=== PATIENT | female | born 1960 | race Caucasian/White ===

== ENCOUNTER → 2021-04-30 11:01 | Outpatient (BNVA) | payer OTHER, SELFPAY | PROVIDERS: Family Provider Family Medicine; Visit Provider Nurse Practitioner Family | DX: Z20.822 Contact with and (suspected) exposure to COVID-19 (principal) | CPT/HCPCS: 87635 ==

== ENCOUNTER 2021-06-29 06:00 | Outpatient (RCR) | payer OTHER, SELFPAY | END 2021-07-29 23:59 | disposition home or self-care (01) | LOC: SPT 06:00 | PROVIDERS: PCP Family Medicine; Referring Provider Family Medicine; Visit Provider Family Medicine | DX: M17.0 Bilateral primary osteoarthritis of knee (principal) | CPT/HCPCS: 97161 ==

== ENCOUNTER 2021-07-30 06:00 | Outpatient (RCR) | payer OTHER, SELFPAY | END 2021-08-28 23:59 | disposition home or self-care (01) | LOC: SPT 06:00 | PROVIDERS: PCP Family Medicine; Referring Provider Family Medicine; Visit Provider Family Medicine | DX: M17.0 Bilateral primary osteoarthritis of knee (principal) | CPT/HCPCS: 97110 ==

== ENCOUNTER 2021-08-01 14:48 | Outpatient (CLI) | payer OTHER, SELFPAY ==
--- NOTE | 2021-08-01 14:56 | MM_ITS ---
WS: [id number] BILATERAL DIGITAL SCREENING MAMMOGRAPHY WITH CAD CLINICAL INFORMATION: SCREENING HISTORY: Screening mammogram. No current complaints. COMPARISON: June 03, 2018 TECHNIQUE: Bilateral CC and MLO views. FINDINGS: Scattered fibroglandular densities bilaterally. No suspicious focal mass, asymmetry, calcifications, or architectural distortion. No evidence of malignancy. MM/[place] [id number] IMPRESSION: BI-RADS: 1-Negative FOLLOW UP: 1 Year Follow-up Recommend return to annual screening mammography.
== END 2021-08-01 14:49 | disposition home or self-care (01) ==
LOC: RADSHAW 14:49
PROVIDERS: PCP Family Medicine; Visit Provider Family Medicine
DX: Z12.31 Encounter for screening mammogram for malignant neoplasm of breast (principal)
CPT/HCPCS: 77067

== ENCOUNTER → 2021-09-24 00:01 | Outpatient (BNVA) | payer OTHER, SELFPAY | PROVIDERS: PCP Family Medicine; Visit Provider Nurse Practitioner Family | DX: Z20.822 Contact with and (suspected) exposure to COVID-19 (principal); J06.9 Acute upper respiratory infection, unspecified; R43.0 Anosmia | CPT/HCPCS: 87635 ==

== ENCOUNTER → 2021-10-11 10:04 | Outpatient (BNVA) | payer OTHER, SELFPAY | PROVIDERS: PCP Family Medicine; Visit Provider Nurse Practitioner Family | DX: Z20.822 Contact with and (suspected) exposure to COVID-19 (principal) | CPT/HCPCS: 87635 ==

== ENCOUNTER 2021-12-03 06:00 | Outpatient (RCR) | payer OTHER, SELFPAY | END 2021-12-27 23:59 | disposition home or self-care (01) | LOC: SPT 06:00 | PROVIDERS: PCP Family Medicine; Referring Provider Orthopaedic Surgery; Visit Provider Orthopaedic Surgery | DX: Z47.1 Aftercare following joint replacement surgery (principal); Z96.651 Presence of right artificial knee joint | CPT/HCPCS: 97110; 97161 ==

== ENCOUNTER 2021-12-28 06:00 | Outpatient (RCR) | payer OTHER, SELFPAY | END 2022-01-26 23:59 | disposition home or self-care (01) | LOC: SPT 06:00 | PROVIDERS: PCP Family Medicine; Referring Provider Orthopaedic Surgery; Visit Provider Orthopaedic Surgery | DX: Z47.1 Aftercare following joint replacement surgery (principal); Z96.651 Presence of right artificial knee joint; M17.11 Unilateral primary osteoarthritis, right knee | CPT/HCPCS: 97110 ==

== ENCOUNTER → 2022-07-16 14:10 | Outpatient (BNVA) | payer OTHER, SELFPAY | PROVIDERS: PCP Family Medicine; Visit Provider Family Medicine | DX: R05.9 Cough, unspecified (principal); J06.9 Acute upper respiratory infection, unspecified | CPT/HCPCS: 87400; 87426 ==

== ENCOUNTER → 2022-08-29 15:54 | Outpatient (BNVA) | payer OTHER, SELFPAY | PROVIDERS: PCP Family Medicine; Visit Provider Family Medicine | DX: J06.9 Acute upper respiratory infection, unspecified (principal) | CPT/HCPCS: 87400 ==

== ENCOUNTER 2022-09-27 08:52 | Outpatient (CLI) | payer OTHER, SELFPAY ==
--- NOTE | 2022-09-27 09:00 | MM_ITS ---
WS: [id number] Bilateral screening 3D tomosynthesis digital mammogram, 09/27/2022 Clinical Data: SCREENING Comparison: 03/31/2021, 06/03/2018, 05/23/2017, 04/28/2015, 05/28/2013, 11/22/2011, 01/27/2007. Findings: The breast parenchymal pattern shows fibroglandular tissue. There is prominent tissue in the upper ou ter quadrant of both breasts unchanged. No spiculated masses or clustered calcifications are seen. Th ere are no secondary signs of carcinoma. There are monitor leads on the right breast. MM/[place] [id number] Impression: 1. Negative bilateral mammogram unchanged. 2. Recommend annual screening mammograms. BIRADS: 1-Negative FOLLOW UP: 1 Year Follow-up The CAD bingo checker was used.
== END 2022-09-27 08:53 | disposition home or self-care (01) ==
PROVIDERS: PCP Family Medicine; Visit Provider Family Medicine
DX: Z12.31 Encounter for screening mammogram for malignant neoplasm of breast (principal)
CPT/HCPCS: 77063; 77067

== ENCOUNTER → 2023-05-08 08:53 | Outpatient (BNVA) | payer OTHER, SELFPAY | PROVIDERS: PCP Family Medicine; Visit Provider Family Medicine | DX: R00.2 Palpitations (principal); R40.0 Somnolence | CPT/HCPCS: 80053; 80061; 84443; 85025 ==

== ENCOUNTER 2023-10-03 07:49 | Outpatient (CLI) | payer OTHER, SELFPAY ==
--- NOTE | 2023-10-03 07:51 | MM_ITS ---
WS: [id number] BILATERAL SCREENING DIGITAL TOMOSYNTHESIS MAMMOGRAM WITH CAD HISTORY: SCREENING COMPARISON: 09/27/2022, 08/01/2021 and 04/28/2015 Bilateral CC and MLO views with tomosynthesis and synthetic mammography submitted. Computer aided det ection analyzed. Breast composition: There are scattered areas of fibroglandular density. No suspicious masses, microc alcifications or architectural distortion. Asymmetric fibroglandular tissue in the upper outer quadra nt of each breast. Very similar to prior studies. IMPRESSION: MM/[place] [id number] BI-RADS: 2-Benign FOLLOW UP: 1 Year Follow-up
== END 2023-10-03 07:50 | disposition home or self-care (01) ==
LOC: RAD 07:49
PROVIDERS: PCP Family Medicine; Visit Provider Family Medicine
DX: Z12.31 Encounter for screening mammogram for malignant neoplasm of breast (principal)
CPT/HCPCS: 77063; 77067

== ENCOUNTER 2023-11-19 14:30 | Outpatient (CLI) | payer OTHER, SELFPAY | END 2023-11-19 14:31 | disposition home or self-care (01) | LOC: SLEEP 11-20 08:55 | PROVIDERS: PCP Family Medicine; Visit Provider Family Medicine | DX: R40.0 Somnolence (principal) | CPT/HCPCS: G0399 ==

== ENCOUNTER → 2024-03-02 10:33 | Outpatient (BNVA) | payer OTHER, SELFPAY | PROVIDERS: PCP Family Medicine; Visit Provider Family Medicine | DX: M19.90 Unspecified osteoarthritis, unspecified site (principal); I10 Essential (primary) hypertension | CPT/HCPCS: 80048; 84550; 85025; 86140 ==

== ENCOUNTER 2024-06-15 13:00 | Outpatient (CLI) | payer OTHER, SELFPAY ==
--- NOTE | 2024-06-15 13:00 | XR_ITS ---
WS: [id number] DEXA (DUAL ENERGY X-RAY ABSORPTIOMETRY) Bone mineral density was performed using a [email or web address] machine. HISTORY: screening COMPARISON: 09/02/2018 Left forearm BMD: 0.449. T score: -0.3 Z score: 0.9 Total hip BMD: Left: 0.850 g/cm2. T score: -1.3 Z score: -0.7 Right: 0.886 g/cm2. T score: -1.0 Z score: -0.4 10 year probability of a major osteoporotic fracture is 7.9%. Compared to the prior study from 09/02/2018. LEFT forearm bone mineral density has decreased by 5.1%. Bilateral hips bone mineral density has decreased by 7.5%. XR/XR DEXA axial skeleton* [id number] IMPRESSION: OSTEOPENIA based upon the WHO classification for females. Significant decrease in bone mineral density within the LEFT forearm and hips s kathy the prior study.
== END 2024-06-15 13:11 | disposition home or self-care (01) ==
PROVIDERS: PCP Family Medicine; Visit Provider Family Medicine
DX: Z00.00 Encounter for general adult medical examination without abnormal findings (principal); M85.88 Other specified disorders of bone density and structure, other site
CPT/HCPCS: 77080

== ENCOUNTER 2024-08-20 08:22 | Outpatient (RCR) | payer OTHER, SELFPAY | END 2024-08-28 23:59 | disposition home or self-care (01) | LOC: SPT 08:22 | PROVIDERS: Visit Provider Orthopaedic Surgery | DX: M17.12 Unilateral primary osteoarthritis, left knee (principal) | CPT/HCPCS: 97110; 97161 ==

== ENCOUNTER 2024-08-29 06:00 | Outpatient (RCR) | payer OTHER, SELFPAY | END 2024-09-28 23:59 | disposition home or self-care (01) | LOC: SPT 06:00 | PROVIDERS: Visit Provider Orthopaedic Surgery | DX: M17.12 Unilateral primary osteoarthritis, left knee (principal) | CPT/HCPCS: 97110 ==

== ENCOUNTER 2024-09-16 17:39 | Emergency (ER) | payer OTHER, SELFPAY ==
[2024-09-16] VITALS (9 sets, daily range): BP systolic 87–154; BP diastolic 66–105; PULSE 65–100; RESP 18–22; TEMP 36.5; O2SAT 92–100; BMI 28.9
--- NOTE | 2024-09-16 18:27 | XRR_ITS ---
PROCEDURE INFORMATION: Exam: XR Chest Exam date and time: 09/16/2024 6:39 PM Age: 64 years old Clinical indication: Shortness of breath and other: N/v/d; Additional info: Severe dizziness with nausea TECHNIQUE: Imaging protocol: Radiologic exam of the chest. Views: 1 view. COMPARISON: CT angio chest PE protcl [id number] 01/25/2019 7:50 AM FINDINGS: Lungs: Unremarkable. No consolidation. Pleural spaces: Unremarkable. No pleural effusion. No pneumothorax. Heart/Mediastinum: Unremarkable. No cardiomegaly. Bones/joints: Unremarkable. The spine demonstrates mild degenerative changes at multiple levels. XR/XR chest 1V portable [id number] IMPRESSION: No acute findings.
--- NOTE | 2024-09-16 18:28 | ED_ITS ---
HPI - Dizziness 2 General: Chief Complaint: Dizziness Stated Complaint: dizzy,n,v Time Seen by Provider: 09/16/24 18:10 Source: patient Mode of arrival: ambulatory Limitations: no limitations History of Present Illness: HPI Narrative: Patient is a 64-year-old female with no pertinent past medical history who is reporting to the emergency department complaining of greater than 24 hours of dizziness. She states that the dizziness is worse when she lies flat, describes it as room spinning. She states she had to cancel her PT appointment this morning due to the severity of her symptoms. She notes that she feels unstable on her feet and that she may fall, though denies any falls. She also is not having any pain anywhere, is having quite a bit of nausea and vomiting but denies any hemoptysis. She has never had this before, states her daughter had severe dizziness once and required vestibular rehab to get better. She denies starting or changing any new medications, specifically also states that she has not tried anything [id number] for her dizziness such as meclizine. She denies feeling dehydrated, and denies any symptoms of a urinary tract infection. No focal neurological deficits reported, in the room confirms that patient has not acted strange in any way to indicate any sort of a strokelike syndrome. Patient is denying any cardiac history. Specifically she is denying any chest pain or shortness of breath. At this time her blood pressure somewhat elevated, likely secondary to her symptoms and anxiety. She is breathing 99 to 100% on room air with normal pulse rate. Denies any sick contacts. MD elicited complaint: dizziness Pertinent past history: other (None) Onset (ago): day(s) Timing: sudden onset Severity: moderate Description: room spinning History of similar symptoms: No Relieving factors: nothing Associated symptoms: Reports nausea and vomiting; Denies chest pain, chills, headache(s) or palpitations Associated neuro symptoms: Deny numbness in extremities Related Data Home Medications Medication Instructions Recorded Confirmed calcium 250 mg (as 1 tab PO DAILY 04/30/21 05/27/24 carbonate)-vitamin D3 3.125 mcg (125 unit) tablet cetirizine 10 mg capsule (Zyrtec) 10 mg PO DAILY PRN 04/30/21 05/27/24 tumeric PO DAILY 04/30/21 05/27/24 antiarthritic combination no.2 900 900 mg PO DAILY 10/11/21 05/27/24 mg tablet (glucosamine-chondroitin) Previous Rx's Medication Instructions Recorded oxycodone-acetaminophen 5 mg-325 1 tab PO Q8H PRN pain 1 month #90 08/15/22 mg tablet (Percocet) tabs meloxicam 15 mg tablet See Rx Instructions .Route 01/26/23 .COMPLEX #90 tabs gabapentin 300 mg capsule 300 mg PO BID #180 caps 02/04/23 pantoprazole 40 mg tablet,delayed See Rx Instructions .Route 07/31/23 release .COMPLEX #90 tabs cyclobenzaprine 10 mg tablet 10 mg PO TID PRN muscle spasm #90 10/09/23 tabs tramadol 50 mg tablet 50 mg PO BID PRN pain #60 tabs 10/09/23 auto-titrating C-pap 6-12 #1 ea 01/06/24 levothyroxine 25 mcg tablet See Rx Instructions .Route 01/27/24 .COMPLEX #90 tabs metoprolol succinate 50 mg See Rx Instructions .Route 02/11/24 tablet,extended release 24 hr .COMPLEX #90 tabs nifedipine 30 mg tablet,extended See Rx Instructions .Route 03/03/24 release 24 hr .COMPLEX #90 tabs citalopram 40 mg tablet See Rx Instructions .Route 04/20/24 .COMPLEX #90 tabs nystatin 100,000 unit/gram topical See Rx Instructions .Route 06/09/24 powder .COMPLEX #30 grams meclizine 25 mg tablet 25 mg PO BID PRN dizziness #30 tabs 09/16/24 Allergies Allergy/AdvReac Type Severity Reaction Status Date / Time Sulfa (Sulfonamide Allergy Intermediate rash Verified 09/16/24 17:55 Antibiotics) nickel Allergy ALGY-Rash Verified 09/16/24 17:55 Review of Systems 2 General: Reports: 10 or more systems reviewed and unremarkable except in HPI and below Const: Denies: fever(s), chills or fatigue Eyes: Denies: change in vision ENMT: Denies: throat pain, ear or mastoid pain or nasal discharge Card: Denies: chest pain, palpitations, swelling of feet/ankles or lightheadedness Resp: Denies: dyspnea, productive cough or wheezing GI: Reports: nausea and vomiting; Denies: abdominal pain, diarrhea or constipation : Denies: flank pain, difficulty voiding, dysuria or urinary frequency Musc: Denies: neck pain, back pain or joint pain Skin/Breast: Denies: rash Neuro: Reports: dizziness; Denies: headache(s), numbness in extremities, weakness in extremities, sensory changes, lack of coordination, behavioral changes, Slurred speech present or seizure-like activity PFSH ED 2 PFSH: Medical History Daytime somnolence Palpitations Osteoarthritis of left knee Social History Smoking and tobacco/nicotine status: unknown if used tobacco/nicotine Alcohol intake: current Alcohol intake frequency: holidays/special occasions only Substance/Drug Use: never Physical Exam 2 Const: COMMON NORMALS: patient oriented x3 and no limitations GENERAL APPEARANCE: cooperative, well developed and anxious (Tearful) O RIENTATION/CONSCIOUSNESS: Yes awake, Yes oriented to person, Yes oriented to place and Yes oriented to time HENMT: COMMON NORMALS: normocephalic, atraumatic, hearing grossly normal bilaterally, TM's normal bilaterally and moist oral mucous membranes HEAD & SCALP: normocephalic and atraumatic TYMPANIC MEMBRANE: TM's normal bilaterally Eye: COMMON NORMALS: Equal, round and reactive pupils present, EOMs intact bilaterally and conjunctivae normal CONJUNCTIVA: Yes conjunctivae normal P UPIL: Yes Equal, round and reactive pupils present OTHER: No nystagmus Neck/C-Spine: COMMON NORMALS: full ROM, supple and no JVD Resp: COMMON NORMALS: normal respiratory effort, No retractions, No use of accessory muscles and clear to auscultation bilaterally AUSCULTATION: clear to auscultation bilaterally Cardio: COMMON NORMALS: no JVD, regular rate, regular rhythm, No clicks present (Cardio), No murmurs present (Cardio) and No rub (Cardio) RATE: r egular rate RHYTHM: regular rhythm GI: COMMON NORMALS: Normal to inspection, nondistended, normoactive bowel sounds present, Soft to palpation and non-tender AUSCULTATION: Yes normoactive bowel sounds PALPATION: Yes Soft to palpation RECTAL EXAM: d eferred Extremity: COMMON NORMALS: normal to inspection, full ROM and capillary refill normal Neuro: COMMON NORMALS: patient oriented x3, CN's II-XII intact bilaterally, moves all extremities, no focal motor deficits and no sensory deficits noted SENSORIUM/ORIENTATION: Yes oriented to person, Yes oriented to place and Yes oriented to time Skin: COMMON NORMALS: no rashes or lesions noted GENERAL SKIN EXAM: no rashes or lesions noted Course 2 Vital Signs: Vital signs: Vital Signs Temperature 97.7 F 09/16/24 17:49 Pulse Rate 71 09/16/24 21:00 Respiratory Rate 18 09/16/24 21:00 Blood Pressure 145/105 09/16/24 21:00 Pulse Oximetry 100 09/16/24 21:00 Oxygen Delivery Me thod Room Air 09/16/24 21:00 MDM - Dizziness Medical Decision Making This patient presented with greater than 24 hours of dizziness,no real history of being positionally exacerbated other than that was worse when she lied flat. This on top of her blood pressure does not make me think of any orthostatic dizziness. On physical exam her neurological status was completely intact, no focal neurological deficits. She did not have any cardiac history, with this acute onset of dizziness wanted to make sure that this was not cryptic cardiac presentation. Her EKG obtained showing normal sinus rhythm with no acute ST segment changes or arrhythmias. Chest x-ray showing no acute cardiopulmonary findings, and her baseline troponin and repeat troponin were both completely negative. She did not appear clinically dehydrated and her metabolic panel was normal. No infection on her CBC. Urinalysis did not show any signs of urinary tract infection. I gave her a dose of meclizine and upon recheck stated it had not gotten much better and for her own sake would like to make sure there is nothing intracranial. Because of this a CT head without contrast was obtained and did not show any acute findings. With lack of workup here in the emergency department, and her completely normal workup, likely this is benign paroxysmal positional vertigo. Actually after the imaging I rechecked her and she was saying that she was starting to feel little better. Discussed with her conservative therapies such as drinking plenty of fluids and taking care with transferring positions. Also will prescribe meclizine for her to take twice daily as needed, and if she continues to have worsening dizziness she may benefit from some vestibular rehab. Very low suspicion at this time for any neurological etiology, despite this we will have her return with any new or concerning symptoms that pop up. Patient agreeing with this plan and all of the questions and concerns were addressed. Vitals have remained stable throughout the ED course. Lab Data 09/16/24 18:31 09/16/24 18:31 Radiology Impressions Chest X-Ray 09/16/24 18:27 IMPRESSION: No acute findings. Head CT 09/16/24 19:38 IMPRESSION: No acute intracranial findings. Laboratory Results WBC 6.95 10^3/uL (3.29-11.43) 09/16/24 18:31 RBC 4.36 10^6/uL (3.85-5.65) 09/16/24 18:31 Hgb 12.10 g/dL (11.27-16.99) 09/16/24 18: Hct 37.6 % (36-47) 09/16/24 18:31 MCV 86.2 fl (85-98) 09/16/24 18:31 MCH 27.8 pg (27-33) 09/16/24 18: MCHC 32.2 g/dL (30-55) 09/16/24 18:31 RDW 13.7 % (12.1-15.1) 09/16/24 18:31 Plt Count 299 10^3/cmm (157-399) 09/16/24 18:31 MPV 9.3 fL (7.4-10.4) 09/16/24 18:31 Neut % (Auto) 42.6 % 09/16/24 18:31 Lymph % (Auto) 47.6 % 09/16/24 18:31 [place] % (Auto) 7.2 % 09/16/24 18:31 Eos % (Auto) 1.9 % 09/16/24 18:31 Baso % (Auto) 0.6 % 09/16/24 18:31 Neut # (Auto) 2.96 10^3/uL (1.8-7.7) 09/16/24 18: Lymph # (Auto) 3.3 10^3/uL (0.8-4.8) 09/16/24 18:31 [place] # (Auto) 0.5 10^3/uL (0.2-0.9) 09/16/24 18:31 Eos # (Auto) 0.1 10^3/uL (0.0-0.8) 09/16/24 18:31 Baso # (Auto) 0.0 10^3/uL (0.0-0.1) 09/16/24 18:31 Nucleated RBC % (auto) 0 % 09/16/24 18:31 Nucleated RBCs # 0.0 /100WBC 09/16/24 18:31 Sodium 140 mmol/L (136-145) 09/16/24 18:31 Potassium 4.3 mmol/L (3.5-5.1) 09/16/24 18:31 Chloride 105 mmol/L (98-107) 09/16/24 18:31 Carbon Dioxide 23 mmol/L (22-29) 09/16/24 18:31 Anion Gap 16.3 (5-19) 09/16/24 18:31 BUN 12 mg/dL (8-23) 09/16/24 18:31 Creatinine 0.4 mg/dL (0.5-0.9) L 09/16/24 18:31 GFR Calculation 161.2 mL/min (90-130) H 09/16/24 18:31 Glucose 91 mg/dL (65-115) 09/16/24 18:31 Calculated Osmolality 289 mOsm/kg (285-295) 09/16/24 18:31 Calcium 9.7 mg/dL (8.5-10.5) 09/16/24 18:31 Total Bilirubin 0.3 mg/dL (0.15-1.2) 09/16/24 18:31 AST 20 U/L (0-32) 09/16/24 18:31 ALT 12 U/L (0-33) 09/16/24 18:31 Alkaline Phosphatase 124 U/L (35-105) H 09/16/24 18:31 Troponin T Baseline < 6 ng/L (0-10) 09/16/24 18:31 Troponin T 120 Minute 6.00 ng/L (0-10) 09/16/24 20:36 Delta Troponin T 0.82349 ABS# (0-10) 09/16/24 20:36 Total Protein 7.1 g/dL (6.6-8.7) 09/16/24 18:31 Albumin 4.3 g/dL (3.5-5.2) 09/16/24 18:31 Globulin 2.8 g/dL (1.3-4.6) 09/16/24 18:31 Urine Color Yellow (Yellow) 09/16/24 19:14 Urine Appearance Clear (CLEAR) 09/16/24 19:14 Urine pH 8.0 (5-7) A 09/16/24 19:14 Ur Specific [place] 1.013 (1.005-1.030) 09/16/24 19:14 Urine Protein Negative (Negative) 09/16/24 19:14 Urine Glucose (UA) Negative (Normal) 09/16/24 19:14 Urine Ketones 1+ (Negative) H 09/16/24 19:14 Urine Blood Negative (Negative) 09/16/24 19:14 Urine Nitrate Negative (Negative) 09/16/24 19:14 Urine Bilirubin Negative (Negative) 09/16/24 19:14 Urine Urobilinogen 1.0 mg/dL (Negative) 09/16/24 19:14 Ur Leukocyte Esterase Negative (Negative) 09/16/24 19:14 Urine RBC 0-2 /hpf (0-2) 09/16/24 19:14 Urine WBC 0-5 /hpf (0-5) 09/16/24 19:14 Ur Squamous Epith Cells 0-5 /hpf (0-5) 09/16/24 19:14 Amorphous Sediment Not Reportable 09/16/24 19:14 Urine Bacteria None seen /hpf (NONE) 09/16/24 19:14 Hyaline Casts 0-4 /lpf H 09/16/24 19:14 All radiology interpretation(s) finalized by discharge EKG Data EKG 1: I personally reviewed and interpreted this EKG as follows: EKG interpretation date: 09/16/24 EKG interpretation time: 18:41 Prior EKG tracings: available for review Interpretation: EKG reviewed by me. Normal sinus rhythm. Rate 61. Normal axis. Normal intervals. No acute ST segment changes. Discharge Plan Discharge Patient Disposition: Home Clinical Impression: Benign paroxysmal positional vertigo Qualifiers: Laterality: unspecified laterality Qualified Code(s): H81.10 - Benign paroxysmal vertigo, unspecified ear Condition: Stable Prescriptions: New meclizine 25 mg tablet 25 mg PO BID PRN (Reason: dizziness) Qty: 30 0RF No Action Zyrtec 10 mg capsule 10 mg PO DAILY PRN calcium carbonate-vitamin D3 250-125 mg-unit tablet 1 tab PO DAILY tumeric PO DAILY glucosamine-chondroitin 900 mg tablet 900 mg PO DAILY methylprednisolone acetate [Depo-Medrol] 80 mg/mL suspension 80 mg intra-articular ONCE Qty: 1 0RF lidocaine (PF) 20 mg/mL (2 %) solution 20 mg intra-articular ONCE Qty: 1 0RF methylprednisolone acetate 80 mg/mL suspension 80 mg IM ONCE Qty: 1 0RF oxycodone-acetaminophen [Percocet] 5-325 mg tablet 1 tab PO Q8H PRN (Reason: pain) 30 Days Qty: 90 0RF meloxicam 15 mg tablet See Rx Instructions .ROUTE .COMPLEX Qty: 90 3RF Dose Instruction: TAKE 1 TABLET DAILY FOR OSTEOARTHRITIS Rx Instructions: TAKE 1 TABLET DAILY FOR OSTEOARTHRITIS gabapentin 300 mg capsule 300 mg PO BID Qty: 180 3RF pantoprazole 40 mg tablet,delayed release (DR/EC) See Rx Instructions .ROUTE .COMPLEX Qty: 90 3RF Dose Instruction: TAKE 1 TABLET DAILY Rx Instructions: TAKE 1 TABLET DAILY cyclobenzaprine 10 mg tablet 10 mg PO TID PRN (Reason: muscle spasm) Qty: 90 11RF tramadol 50 mg tablet 50 mg PO BID PRN (Reason: pain) Qty: 60 5RF (DME) auto-titrating C-pap 6-12 See Rx Instructions .Route .MEDSUPPLY Qty: 1 0RF Rx Instructions: use as directed. mask and supplies levothyroxine 25 mcg tablet See Rx Instructions .ROUTE .COMPLEX Qty: 90 3RF Dose Instruction: TAKE 1 TABLET DAILY Rx Instructions: TAKE 1 TABLET DAILY metoprolol succinate 50 mg tablet extended release 24 hr See Rx Instructions .ROUTE .COMPLEX Qty: 90 3RF Dose Instruction: TAKE 1 TABLET DAILY FOR HYPERTENSION Rx Instructions: TAKE 1 TABLET DAILY FOR HYPERTENSION nifedipine 30 mg tablet extended release 24hr See Rx Instructions .ROUTE .COMPLEX Qty: 90 3RF Dose Instruction: TAKE 1 TABLET DAILY Rx Instructions: TAKE 1 TABLET DAILY citalopram 40 mg tablet See Rx Instructions .ROUTE .COMPLEX Qty: 90 3RF Dose Instruction: TAKE 1 TABLET DAILY Rx Instructions: TAKE 1 TABLET DAILY nystatin 100,000 unit/gram powder See Rx Instructions .ROUTE .COMPLEX Qty: 30 2RF Dose Instruction: APPLY TO THE AFFECTED AREA(S) THREE TIMES DAILY Rx Instructions: APPLY TO THE AFFECTED AREA(S) THREE TIMES DAILY Discharge Orders: Discharge ED (Routine); Ordered 09/16/24 Ordered By: Hasmukh Banegas Patient Instructions: Benign Paroxysmal Positional Vertigo (ED) Activity Restrictions/Additional Instructions: Take meclizine as prescribed, this is 25 mg twice a day as needed. Please drink plenty of fluids. See attached patient instructions for further education. Take care with transferring positions. If you continue to have worsening dizziness or any new concerning symptoms develop, please return to the emergency department for further evaluation. Coding Level of Care Code ED Telegraph Service Clerk for [facility] Benton
[2024-09-16 18:36] LABS: Basophils % 0.6 %; Eosinophils # 0.1 10^3/uL (0.0-0.8); Eosinophils % 1.9 %; Hematocrit 37.6 % (36-47); Lymphocytes # 3.3 10^3/uL (0.8-4.8); Lymphocytes % 47.6 %; Mean Corpuscular HGB Conc 32.2 g/dL (30-55); Mean Corpuscular Hemoglobin 27.8 pg (27-33); Mean Corpuscular Volume 86.2 fl (85-98); Mean Platelet Volume 9.3 fL (7.4-10.4); Monocytes # 0.5 10^3/uL (0.2-0.9); Monocytes % 7.2 %; Neutrophils # 2.96 10^3/uL (1.8-7.7); Neutrophils % 42.6 %; Nucleated Red Blood Cells % 0 %; Platelet Count 299 10^3/cmm (157-399); Red Blood Count 4.36 10^6/uL (3.85-5.65); Red Cell Distribution Width 13.7 % (12.1-15.1); White Blood Count 6.95 10^3/uL (3.29-11.43)
--- NOTE | 2024-09-16 18:37 | ECG_ITS ---
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 [email or web address]
[2024-09-16 18:57] LABS: Troponin(5th) Baseline < 6 ng/L (0-10)
[2024-09-16 18:59] LABS: Alanine Aminotransferase 12 U/L (0-33); Albumin Level 4.3 g/dL (3.5-5.2); Alkaline Phosphatase 124 U/L (35-105); Anion Gap 16.3 (5-19); Aspartate Amino Transferase 20 U/L (0-32); Blood Urea Nitrogen 12 mg/dL (8-23); Calcium 9.7 mg/dL (8.5-10.5); Carbon Dioxide 23 mmol/L (22-29); Chloride 105 mmol/L (98-107); Creatinine Clr Calc Pharmacy 133.4616; Globulin 2.8 g/dL (1.3-4.6); Glomerular Filtration Rate 161.2 mL/min (90-130); Glucose 91 mg/dL (65-115); Osmolality Calculated 289 mOsm/kg (285-295); Potassium 4.3 mmol/L (3.5-5.1); Sodium 140 mmol/L (136-145); Total Bilirubin 0.3 mg/dL (0.15-1.2); Total Protein 7.1 g/dL (6.6-8.7)
[2024-09-16] MEDS: meclizine 25 mg tablet 50 MG PO (19:09)
--- NOTE | 2024-09-16 19:38 | CTR_ITS ---
PROCEDURE INFORMATION: Exam: CT Head Without Contrast Exam date and time: 09/16/2024 7:45 PM Age: 64 years old Clinical indication: Dizziness and other: N/v; Additional info: Dizziness/vomiting TECHNIQUE: Imaging protocol: Computed tomography of the head without contrast. Radiation optimization: All CT scans at this facility use at least one of these dose optimization techniques: automated exposure control; mA and/or kV adjustment per patient size (includes targeted exams where dose is matched to clinical indication); or iterative reconstruction. COMPARISON: No relevant prior studies available. RADIATION DOSE METRICS: Total DLP (mGy-cm): 1076.08 FINDINGS: Brain: No intracranial hemorrhage. There is global parenchymal volume loss. Periventricular white matter hypoattenuation is nonspecific but most likely due to small vessel disease. No evidence of acute territorial infarct or cerebral edema. No mass effect or midline shift. Cerebral ventricles: Prominent ventricles likely secondary to volume loss. Paranasal sinuses: The visualized portions of the sinuses are normal. Mastoid air cells: The mastoid air cells are clear. Bones: The calvarium is intact. Soft tissues: Unremarkable. CT/CT head wo con* [id number] IMPRESSION: No acute intracranial findings.
[2024-09-16 19:50] LABS: Bilirubin Urine Negative (Negative); Blood Urine Negative (Negative); Glucose Urine UA Negative (Normal); Ketones Urine 1+ (Negative); Leukocyte Esterase Urine Negative (Negative); Nitrate Urine Negative (Negative); Protein Urine Negative (Negative); Specific Gravity, Urine 1.013 (1.005-1.030); Urine Appearance Clear (CLEAR); Urine Color Yellow (Yellow)
[2024-09-16 19:54] LABS: Add Urine Microscopic? YES; Bacteria Urine None Seen /hpf; Hyaline Casts Urine 0-4 /lpf; RBC Urine 0-2 /hpf (0-2); Squamous Epithelial Cell Urine 0-5 /hpf (0-5); WBC Urine 0-5 /hpf (0-5)
--- NOTE | 2024-09-16 20:30 | ECG_ITS ---
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 [email or web address]
[2024-09-16 21:07] LABS: Troponin 5 2HR Delta 0.00001 ABS# (0-10)
[2024-09-16] MEDS: meclizine 25 mg tablet PO (21:23)
== END 2024-09-16 21:29 | disposition home or self-care (01) ==
PROVIDERS: Emergency Provider Physician Assistant
DX: H81.10 Benign paroxysmal vertigo, unspecified ear (principal)
CPT/HCPCS: 70450; 71045; 80053; 81001; 84484; 85025; 93005; 99285; J8597

== ENCOUNTER 2024-09-29 06:00 | Outpatient (RCR) | payer OTHER, SELFPAY | END 2024-10-08 23:59 | disposition home or self-care (01) | LOC: SPT 06:00 | PROVIDERS: PCP Family Medicine; Visit Provider Orthopaedic Surgery | DX: M17.12 Unilateral primary osteoarthritis, left knee (principal) | CPT/HCPCS: 97110 ==

== ENCOUNTER 2024-10-20 08:30 | Outpatient (RCR) | payer OTHER, SELFPAY | END 2024-10-29 23:59 | disposition home or self-care (01) | LOC: SPT 08:30 | PROVIDERS: Visit Provider Family Medicine | DX: H81.10 Benign paroxysmal vertigo, unspecified ear (principal) | CPT/HCPCS: 95992; 97161 ==

== ENCOUNTER 2024-10-30 06:00 | Outpatient (RCR) | payer OTHER, SELFPAY | END 2024-11-26 23:59 | disposition home or self-care (01) | LOC: SPT 06:00 | PROVIDERS: PCP Family Medicine; Visit Provider Family Medicine | DX: H81.10 Benign paroxysmal vertigo, unspecified ear (principal); R42 Dizziness and giddiness | CPT/HCPCS: 95992 ==

== ENCOUNTER 2024-11-01 08:30 | Outpatient (CLI) | payer OTHER, SELFPAY ==
--- NOTE | 2024-11-01 | MM_ITS ---
WS: [id number] SCREENING DIGITAL BREAST TOMOSYNTHESIS MAMMOGRAM WITH CAD HISTORY: ANNUAL SCREENING COMPARISON: 10/03/2023, 09/27/2022, 08/01/2021 Bilateral CC and MLO with tomosynthesis and synthetic mammography submitted. Computer aided detection analyzed. Breast composition: There are scattered areas of fibroglandular density. Cluster of calcifications in the posterior lateral LEFT breast near 3-4 o'clock needs to be further evaluated with magnification views. Faint calcifications were probably present in 2023. There are a few additional bilateral calci fications which are benign. No distortion. MM/MM scr BI tomosynthesis [id number] IMPRESSION: BI-RADS: 0 - Incomplete: Need additional imaging evaluation. FOLLOW UP: Need Additional Imaging LEFT BREAST: Magnification views of suspicious calcification CC and MLO. Gold Gtz
== END 2024-11-01 08:31 | disposition home or self-care (01) ==
PROVIDERS: PCP Family Medicine; Visit Provider Family Medicine
DX: Z12.31 Encounter for screening mammogram for malignant neoplasm of breast (principal); R92.323 Mammographic fibroglandular density, bilateral breasts; R92.1 Mammographic calcification found on diagnostic imaging of breast; R92.8 Other abnormal and inconclusive findings on diagnostic imaging of breast
CPT/HCPCS: 77063; 77067

== ENCOUNTER 2024-11-29 08:34 | Outpatient (CLI) | payer OTHER, SELFPAY ==
--- NOTE | 2024-11-29 08:30 | MM_ITS ---
WS: [id number] LEFT ADDITIONAL DIGITAL TOMOSYNTHESIS MAMMOGRAPHY WITH CAD. HISTORY: Calcifications LEFT breast. COMPARISON: 11/01/2024, 10/03/2023, 09/27/2022 Technique: Magnification views LEFT CC and MLO. True ML. Breast composition: There are scattered areas of fibroglandular density. Small cluster of calcifications is reidentified in the lateral inferior LEFT breast. This is a small cluster of benign-appearing calcifications. These were probably present in 2023 and also on the exam of 09/27/2022 but better visualized due to better imaging technique. Due to the stability no biopsy r ecommended at this time. Recommend additional 6-month follow-up to document long-term stability and make sure there is no increasing calcific burden. MM/MM diag LT tomosynthesis [id number] IMPRESSION: BI-RADS: 3 - Probably Benign. FOLLOW UP: Need Additional Imaging Recommend 6-month LEFT mammogram follow-up with magnification views of the calc ifications. These calcifications were probably present in 2021 but better visua lized on the today's imaging exam. Recommend 6-month follow-up to ensure there is stability.
== END 2024-11-29 08:35 | disposition home or self-care (01) ==
PROVIDERS: PCP Family Medicine; Visit Provider Family Medicine
DX: N63.20 Unspecified lump in the left breast, unspecified quadrant (principal); R92.322 Mammographic fibroglandular density, left breast; R92.1 Mammographic calcification found on diagnostic imaging of breast
CPT/HCPCS: 77061; G0279

== ENCOUNTER 2025-06-21 10:34 | Outpatient (CLI) | payer OTHER, SELFPAY ==
--- NOTE | 2025-06-21 10:39 | MM_ITS ---
WS: [id number] DI[facility]NOSTIC LEFT DIGITAL BREAST TOMOSYNTHESIS WITH CAD HISTORY: CALCS/ABNORMAL MAMMO COMPARISON: 11/29/2024, 11/01/2024, 10/03/2023 Left craniocaudal, mediolateral oblique and medial lateral images are submitted with tomosynthesis and SM. Magnification views LEFT CC and MLO. Computer aided detection performed. Breast composition: There are scattered areas of fibroglandular density. Cluster of calcifications in the lateral inferior LEFT breast is identified with no interval change. These calcifications are in a small cluster and this may be a fibroadenoma. No increase in the size or number of calcifications. No suspicious mass. Benign calcifications scattered within the LEFT breast. MM/MM diag LT tomosynthesis [id number] IMPRESSION: BI-RADS: 3 - Probably Benign. FOLLOW UP: 6 Month Follow-up Patient to return in 6 months for bilateral annual mammogram. Magnification vie ws and follow-up imaging of the calcifications in the LEFT breast recommended a t that time.
== END 2025-06-21 10:35 | disposition home or self-care (01) ==
PROVIDERS: PCP Family Medicine; Visit Provider Family Medicine
DX: R92.8 Other abnormal and inconclusive findings on diagnostic imaging of breast (principal); R92.322 Mammographic fibroglandular density, left breast
CPT/HCPCS: 77061; G0279